=== PATIENT | male | born 1955 | race Caucasian/White ===

== ENCOUNTER 2017-11-25 02:05 | Observation (INO) | payer OTHER ==
[~2017-11-25] VITALS: Ht 167.6 cm; Wt 112.0 kg
[~2017-11-25 02:05] MED LIST: ALLOPURINOL300 MG PO; BENADRYL50 MG PO; CELEXA20 MG PO; CLARITIN10 MG PO; COMBIVENT RESPIM4 GM IH; COUMADIN1 MG PO; Coumadin,Jantoven PO; Duricef PO; FLOMAX0.4 MG PO; Feosol PO; HYDROCHLOROTHIA25 MG PO; MELOXICAM7.5 MG PO; MOBIC7.5 MG PO; OXYCODONE HCL5 MG PO; OXYCONTIN20 MG PO; OxyCONTIN PO; POTASSIUM CITR10 MEQ PO; ROBAXIN500 MG PO; ROXICODONE5 MG PO; SENOKOT S,PE1 TABLET PO; SINGULAIR10 MG PO; THERAGRAN1 TABLET PO; TORADOL10 MG PO; Urocit-K PO; VENTOLIN HFA18 GM IH; VITAMIN D1000 INTUN PO; ZOFRAN ODT4 MG PO; Zestoretic,Prinzide PO; oxyCODONE PO
[2017-11-25 06:18] LABS: HEMATOCRIT 41.9 % (38.0-50.0); HEMOGLOBIN 14.6 G/DL (12.5-16.6); MCH 31.7 PG (29.0-34.0); MCHC 34.8 G/DL (30.0-36.0); MCV 90.9 FL (86-99); PLATELET COUNT 257 K/uL (156-360); RBC DIS.WIDTH-CV 13.2 % (11.8-14.6); RBC DIS.WIDTH-SD 43.6 % (39-53); RED BLOOD COUNT 4.61 M/uL (4.00-5.50); WHITE BLOOD COUNT 15.8 K/uL (4.1-10.2)
[2017-11-25 06:24] LABS: INTER. NORMALIZED RATIO 1.3
[2017-11-25 06:26] LABS: PTT 29.8 SEC (25-37)
[2017-11-25 06:33] LABS: ALBUMIN 3.7 g/dL (3.2-4.8); CHLORIDE 101 mEq/L (99-109); POTASSIUM 3.6 mEq/L (3.7-5.4); SODIUM 137 mEq/L (136-147)
[2017-11-25 06:35] LABS: GLUCOSE 120 mg/dL (70-99); TOTAL PROTEIN 7.1 g/dL (6.4-8.3)
[2017-11-25 06:37] LABS: TOTAL BILIRUBIN 0.9 mg/dL (0.0-1.0)
[2017-11-25 06:39] LABS: ALKALINE PHOSPHATASE 76 IU/L (3-129); CREATININE 0.8 mg/dL (0.6-1.3); GFR ESTIMATE (CALCULATED) > 59 mL/min/ (58.99-99999)
[2017-11-25 06:40] LABS: UREA NITROGEN (BUN) 19 mg/dL (9-23)
[2017-11-25 06:41] LABS: AST (GOT) 15 IU/L (2-34)
[2017-11-25 06:42] LABS: ALT (GPT) 21 IU/L (3-49)
[2017-11-25] MEDS ORDERED: POTASSIUM CITR10 MEQ PO (07:37)
[2017-11-25] MEDS ORDERED: HYDROCHLOROTHIA50 MG PO (07:38)
[2017-11-25] MEDS ORDERED: ROXICODONE5 MG PO (07:39)
[2017-11-25] MEDS ORDERED: TYLENOL EXTRA500 MG PO (07:40)
[2017-11-25] MEDS ORDERED: ATARAX,VISTARIL25 MG PO (07:40)
[2017-11-25] MEDS ORDERED: LUTEIN10 MG PO (07:40)
[2017-11-25 08:35] VITALS: BP 131/76
[2017-11-25 11:10] VITALS: BP 127/62
[2017-11-25 14:46] VITALS: BP 148/70
[2017-11-25 20:01] VITALS: BP 135/75
[2017-11-26 00:01] VITALS: BP 120/74
[2017-11-26 04:13] VITALS: BP 127/70
[2017-11-26 05:34] LABS: BASOPHIL (%) 0.6 % (0-1); BASOPHIL COUNT 0.1 K/uL (0-0.1); EOSINOPHIL (%) 4.5 % (0-5); EOSINOPHIL COUNT 0.5 K/uL (0-0.3); HEMATOCRIT 42.5 % (38.0-50.0); HEMOGLOBIN 14.1 G/DL (12.5-16.6); MCH 30.9 PG (29.0-34.0); MCHC 33.2 G/DL (30.0-36.0); MCV 93.2 FL (86-99); MONOCYTE (%) 9.3 % (3-12); MONOCYTE COUNT 1.1 K/uL (0-0.8); NEUTROPHIL (%) 67.6 % (45-76); PLATELET COUNT 277 K/uL (156-360); RBC DIS.WIDTH-CV 13.2 % (11.8-14.6); RED BLOOD COUNT 4.56 M/uL (4.00-5.50); WHITE BLOOD COUNT 11.9 K/uL (4.1-10.2)
[2017-11-26 05:51] LABS: CHLORIDE 100 MEQ/L (99-109); CREATININE 0.7 MG/DL (0.6-1.3); GFR ESTIMATE (CALCULATED) > 59 mL/min/ (58.99-99999); GLUCOSE 108 mg/dL (70-99); POTASSIUM 3.9 MEQ/L (3.7-5.4); SODIUM 137 MEQ/L (136-147); UREA NITROGEN (BUN) 17 mg/dL (9-23)
[2017-11-26 08:11] VITALS: BP 124/70
[2017-11-26] MEDS ORDERED: ELIQUIS5 MG PO (11:28)
[2017-11-26 11:47] VITALS: BP 130/75
== END 2017-11-26 12:35 | disposition home or self-care (01) ==
LOC: EME 02:05 → EDOF 05:47 → ENRESERV 05:49 → 4SOUTH 08:25
PROVIDERS: Internal Medicine; Physician Assistant
DX: I82.422 Acute embolism and thrombosis of left iliac vein (principal); I82.492 Acute embolism and thrombosis of other specified deep vein of left lower extremity; J45.909 Unspecified asthma, uncomplicated; F32.9 Major depressive disorder, single episode, unspecified; Z87.442 Personal history of urinary calculi; Z98.890 Other specified postprocedural states; Z96.653 Presence of artificial knee joint, bilateral; I10 Essential (primary) hypertension; Z84.1 Family history of disorders of kidney and ureter; Z87.891 Personal history of nicotine dependence
CPT/HCPCS: 80048; 80053; 85025; 85027; 85610; 85730; 93971; 94799; 99281; 99285; G0378; J1650

== ENCOUNTER 2017-12-11 05:18 | Emergency (ER) | payer OTHER ==
[~2017-12-11] VITALS: Ht 167.6 cm; Wt 115.3 kg
[~2017-12-11 05:18] MED LIST changes: +ATARAX,VISTARIL25 MG PO; +ELIQUIS5 MG PO; +HYDROCHLOROTHIA50 MG PO; +LUTEIN10 MG PO; +TYLENOL EXTRA500 MG PO
[2017-12-11 06:32] LABS: HEMATOCRIT 41.6 % (38.0-50.0); HEMOGLOBIN 14.4 G/DL (12.5-16.6); MCH 31.3 PG (29.0-34.0); MCHC 34.6 G/DL (30.0-36.0); MCV 90.4 FL (86-99); PLATELET COUNT 279 K/uL (156-360); RBC DIS.WIDTH-CV 13.4 % (11.8-14.6); RBC DIS.WIDTH-SD 43.6 % (39-53); WHITE BLOOD COUNT 10.9 K/uL (4.1-10.2)
[2017-12-11 06:43] LABS: CHLORIDE 102 mEq/L (99-109); POTASSIUM 3.5 mEq/L (3.7-5.4); SODIUM 142 mEq/L (136-147)
[2017-12-11 06:44] LABS: GLUCOSE 109 mg/dL (70-99)
[2017-12-11 06:48] LABS: CREATININE 0.8 mg/dL (0.6-1.3); GFR ESTIMATE (CALCULATED) > 59 mL/min/ (58.99-99999)
[2017-12-11 06:49] LABS: UREA NITROGEN (BUN) 21 mg/dL (9-23)
[2017-12-11] MEDS ORDERED: PERCOCET 5/31 TABLET PO (07:17)
[2017-12-11 07:35] VITALS: BP 119/80
== END 2017-12-11 07:39 | disposition home or self-care (01) ==
LOC: EME 05:18
PROVIDERS: Emergency Medicine
DX: I82.422 Acute embolism and thrombosis of left iliac vein (principal); I82.412 Acute embolism and thrombosis of left femoral vein; I82.442 Acute embolism and thrombosis of left tibial vein; Z79.01 Long term (current) use of anticoagulants; J43.9 Emphysema, unspecified; I10 Essential (primary) hypertension; F32.9 Major depressive disorder, single episode, unspecified; Z96.653 Presence of artificial knee joint, bilateral; Z86.718 Personal history of other venous thrombosis and embolism; Z87.891 Personal history of nicotine dependence
CPT/HCPCS: 71046; 80048; 85027; 93971